=== PATIENT | male | born 1995 ===

== ENCOUNTER 2020-11-11 17:17 | Outpatient (REF) | payer MEDICAID, SELFPAY ==
[2020-11-11 20:20] LABS: HCT 47.3 % (40.0-50.0); HGB 15.7 g/dL (13.5-17.5); MCH 30.3 pg (27.0-33.0); MCHC 33.2 % (32.0-36.0); MCV 91.1 fL (80-95); MPV 9.8 fL (8.0-11.0); Platelet Count 334 10^3/uL (130-400); RBC 5.19 10^6/uL (4.36-5.78); RDW 12.3 % (11.8-14.1); RDW-SD 41.4 fL; WBC 12.98 10^3/uL (4.4-10.8)
[2020-11-11 20:23] LABS: ESR 8 mm/hr (0-15)
[2020-11-13 10:48] LABS: Lyme Ab w Rflx to Lyme Confirm Positive (Negative)
[2020-11-13 14:23] LABS: Lyme IgG Ab Negative (Negative); Lyme IgM Ab Positive (Negative)
== END 2020-11-11 17:18 | disposition home or self-care (01) ==
LOC: NCHCN 17:17
PROVIDERS: PCP Physician Assistant; Visit Provider Nurse Practitioner Family
DX: M25.59 Pain in other specified joint (principal); Z86.19 Personal history of other infectious and parasitic diseases
CPT/HCPCS: 85027; 85652; 86617; 86618

== ENCOUNTER 2021-11-06 15:35 | Outpatient (REF) | payer MEDICAID, SELFPAY ==
[2021-11-06 19:39] LABS: ESR 4 mm/hr (0-15)
[2021-11-06 19:40] LABS: Abs Immature Grans 0.05 10^3/uL (0.0-0.06); Absolute Basophil Count 0.07 10^3/uL (0.0-0.2); Absolute Eosinophil Count 0.26 10^3/uL (0.0-0.7); Absolute Lymphocyte Count 2.13 10^3/uL (1.2-3.4); Absolute Monocyte Count 0.63 10^3/uL (0.1-0.8); Absolute Neutrophil Count 7.61 10^3/uL (1.2-6.7); Basophils % 0.7; Eosinophils % 2.4; HCT 48.3 % (40.0-50.0); HGB 16.6 g/dL (13.5-17.5); Immature Grans % 0.5; Lymphocytes % 19.8; MCH 30.1 pg (27.0-33.0); MCHC 34.4 % (32.0-36.0); MCV 88 fL (80-95); MPV 9.9 fL (8.0-11.0); Monocytes % 5.9; Neutrophils % 70.7; Platelet Count 327 10^3/uL (130-400); RBC 5.51 10^6/uL (4.36-5.78); RDW 12.3 % (11.8-14.1); RDW-SD 39.7 fL; WBC 10.75 10^3/uL (4.4-10.8)
[2021-11-06 19:58] LABS: Iron 64 ug/dL (65-175); Total Iron Binding Capacity 292 ug/dL (250-450); Transferrin Sat 22 % (20-55)
[2021-11-06 20:11] LABS: ALT 22 U/L (16-63); AST 24 U/L (15-37); Albumin 4.1 g/dL (3.4-5.0); Alkaline Phosphatase 46 U/L (46-116); Anion Gap 8.5 mmol/L (3-11); BUN 14 mg/dL (7-18); Bilirubin, Total 0.2 mg/dL (0.2-1.0); CO2 27.5 mmol/L (21.0-32.0); Calcium 8.7 mg/dL (8.5-10.1); Chloride 104 mmol/L (98-107); Estimated GFR 105.79 (mL/min/1.73m2); Ferritin 40 ng/mL (26-388); Glucose 85 mg/dL (74-106); Potassium 3.9 mmol/L (3.5-5.1); Sodium 140 mmol/L (136-145); TSH (W/Ref FT4) 0.67 uIU/mL (0.36-3.74); Total Protein 7.9 g/dL (6.4-8.2)
[2021-11-06 20:23] LABS: C-Reactive Protein 0.15 mg/dL (0.0-0.3)
[2021-11-07 22:27] LABS: Rheumatoid Factor <8.6 IU/mL (<12.0)
[2021-11-08 09:44] LABS: Cyclic Citrullinated Peptide <2.5 U/mL (<5.0)
[2021-11-09 11:55] LABS: Lyme Ab w Rflx to Lyme Confirm Equivocal (Negative)
[2021-11-09 13:38] LABS: Lyme IgG Ab Negative (Negative); Lyme IgM Ab Positive (Negative)
[2021-11-09 14:26] LABS: ANA Interpretation Negative (Negative)
[2021-11-11 22:51] LABS: Anaplasma phagocytophilum Negative (Negative); B. miyamotoi PCR Negative (Negative); Babesia divergens/MO-1 Negative (Negative); Babesia duncani Negative (Negative); Babesia microti Negative (Negative); Ehrlichia chaffeensis Negative (Negative); Ehrlichia ewingii/canis Negative (Negative); Ehrlichia muris eauclairensis Negative (Negative)
== END 2021-11-06 15:36 | disposition home or self-care (01) ==
LOC: NCHCN 15:35
PROVIDERS: PCP Physician Assistant; Visit Provider Physician Assistant
DX: A69.20 Lyme disease, unspecified (principal); M25.59 Pain in other specified joint; L65.9 Nonscarring hair loss, unspecified
CPT/HCPCS: 80053; 85652; 86200; 86617; 87798; 82728; 83540; 83550; 84443; 85025; 86038; 86140; 86431; 86618

== ENCOUNTER 2022-03-15 12:51 | Outpatient (REF) | payer MEDICAID, SELFPAY ==
--- OUTSIDE RECORDS SUMMARY | 2022-03-15 12:55 | XMS_ITS | Continuity of Care Document ---
:[address] [facility] Address [address] [place] [address] Phone Care Team Providers Name Role Phone PCP, of Choice Primary Care Provider Unavailable Allergies, Adverse Reactions, Alerts No known allergies. Medications Medication Status Dose Units Route Sig Qty Days Start Date End Ins tructions Date Amoxicillin-Pot Active 1 TAB ORAL Q12H 14 7 October Clavulanate 2018 10:19am Problems Active Problems Medical Problem Onset Date Status Infected tooth Active Encounters Encounter Location(s) Arrival/Admit Date Discharge/Depart Date Provider(s) Departed [facility] November 05, 2018 November 05, 2018 n l Emergency [facility] 9:47am 10:34am [facility] [place] Assessments No Assessments Information Available Functional Status No Functional Status information available Goals No Goals Information Available Mental Status No Mental Status Information Available Medical Equipment No Medical Equipment Information available Insurance Providers Guarantor SHANNON ALANIS Address [address] [place] [id number] Contact Info. Home Phone: Payer Policy Id Coverage Id Subscriber's Subscriber Id Effective E xpiration Name Date Date [place] [id number] SHANNON ALANIS [id number] [place] [employer] PAY Self N/A Plan of Treatment Future Tests Future scheduled test information is unavailable Pending Tests Pending diagnostic test information is unavailable Future Visits Future appointment information is unavailable Referrals to Other Providers Reason for Referral Start Provider Provider Contact Provider Address Referral Date Information Choice PCP of Future Procedures Future procedure information is unavailable Future Medications Future medication information is unavailable Patient Instructions Patient instructions are unavailable Social History Assigned Sex Male Vital Signs Vital Reading Result Reference Range Collection Date/ Time Height 67 [in_i] November 05 9:55am Weight 74.84 kg November 05 9:55am Body Temperature 98.2 [degF] 97.6-99.6 November 05, 2018 9:55am Heart Rate 93 /min 60-100 November 05 9:55am Respiratory rate 16 /min 12-24 November 05, 2018 9:55am Oxygen saturation by Pulse 99 % 95-100 Domingo delacruz 2018 9:55am oximetry BP Systolic 130 mm[Hg] 100-140 November 05 9:55am BP Diastolic 80 mm[Hg] 50-85 November 05 9:55am Hospital Discharge Instructions Additional Instructions You likely have a tooth infection You have been prescribed an antibiotic and should take all doses even if you begin to feel better. You can take tylenol as directed for pain management. Since we gave you a shot of toradol in clinic, please avoid NSAIDs (ibuprofen, aleve, aspirin) until tonight. You may want to eat a soft diet for comfort and advance your diet as tolerated. Make sure you are adequately hydrated. You should follow up with your dentist when you return home. If you have any symptoms of systemic infection such as fevers or chills, worsening or no improvement you should follow up with the ED, PCP, dentist, or here
--- OUTSIDE RECORDS SUMMARY | 2022-03-15 12:55 | XMS_ITS | Continuity of Care Document ---
:[address] [facility] Address [address] [place] [address] Care Team Providers Name Role Phone PCP, of Choice Primary Care Physician Unavailable Allergies, Adverse Reactions, Alerts No known allergies. Medications Active Medications Medication Dose Units Route Sig Qty Days Start Date St atus Amoxicillin-Pot Clavulanate 1 TAB ORAL Q12H 14 November 05, 2018 Active Problem List Active Problems Medical Problem Onset Date Status Infected tooth Active Procedures No known history of procedures. Relevant Diagnostic Tests and/or Laboratory Data No known relevant diagnostic tests, laboratory data, and/or discharge summary. Hospital Discharge Instructions Additional Discharge Instructions You likely have a to oth infection You have been prescribed an antibiotic and should take all doses even if you begin to feel better. You can take tylenol as dire cted for pain management. Since we gave you a shot of toradol in clinic, please avoid NSAIDs (ibuprofen, aleve, aspirin) until tonight. You may want to eat a soft d iet for comfort and advance your diet as tolerated. Make sure you are adequately hydrated. You should follow up with yo ur dentist when you return home. If you have any symptoms of systemic infection such as fevers or chills, worsening or no improvement you should follow up with the ED, PCP, dentist, or here No Instructions/Education Provided Hospital Discharge Medications Medication Dose Units Route Sig Qty Days Order Date Status In structions Amoxicillin-Pot 1 TAB ORAL Q12H 14 November 05, Ac tive Clavulanate 2018 Encounters Encounter Facility Location Admit/Visit Discharge/Departure Atte nding Date Date Provider Departed [facility] November 05, November 05, 2018 [facility] [place] 2018 9:47am 10:34am Functional Status No known functional status. Immunizations No known immunizations. Payers Payer Name Policy Type Covered Covered Relationship Subscriber Sub scriber Id Libertarian Libertarian Id MEDICAID OF Medicaid SHANNON [id number] Self/Same as SHANNON [id number] [place] [employer] Patient [employer] S[employer]F PAY Personal Plan of Care No Known Plan of Care Information Social History No known social history. Vital Signs Vital Reading Result Reference Range Collection Date/ Time Height 5 ft 7 in November 05 9:55am Weight 74.843 kg November 05 9:55am Temperature 98.2 F 97.6 F-99.6 F November 05 9:55am Pulse 93 BPM 60-100 November 05 9:55am Respiration 16 RPM 12-24 November 05 9:55am Pulse Oximetry 99 % 95-100 November 05 9:55am Blood Pressure Systolic 130 100-140 [facility] 2018 9:55am Blood Pressure Diastolic 80 50-85 [facility] [place] 9:[place] Body Mass Index n/a
[2022-03-18 12:23] LABS: IgA 217 mg/dL (85-499); Interpretation (See Note); Tissue Transglutaminase IgA <1.2 U/mL (<4.0)
== END 2022-03-15 12:52 | disposition home or self-care (01) ==
LOC: NCHCN 12:51
PROVIDERS: PCP Physician Assistant; Visit Provider Nurse Practitioner Family
DX: R19.7 Diarrhea, unspecified (principal)
CPT/HCPCS: 82784; 83516